=== PATIENT | male | born 1940 | race Caucasian/White ===

== ENCOUNTER 2019-11-22 08:47 | Outpatient (CLI) | payer BC ==
--- NOTE | 2019-11-22 09:58 | CT ---
Exam: Lumbar spine CT without contrast HISTORY: Chronic low back pain for many years. Patient is having balance issues. COMPARISON: None. FINDINGS: Somewhat limited evaluation due to motion degradation. Symmetric attenuation of the paraspinal muscles. Appropriate attenuation of the visualized solid orga ns. Atherosclerosis of a nonaneurysmal aorta. Lumbar spine vertebral body height is maintained. There is no fracture. Multilevel endplate sclerosis and osteophyte formation, on the basis of degenerative change. There is mild rightward curvature of the lumbar spine with the apex at the L3 level. Multilevel vacuum disc phenomenon throughout the d istal thoracic spine, lumbar spine and lumbosacral junction. Visualized sacrum and iliac wings are intact. Visualized presacral fat is preserved. Limited evaluation of the contents of the central spinal canal and neural foramina due to technique T11-T12 and T12-L1: Vacuum disc phenomenon with mild central canal stenosis and mild bilateral neural foraminal narrowing. L1-L2: Vacuum disc phenomenon. Severe loss of disc space height. Broad-based disc osteophyte by compl ex with mild to moderate central canal stenosis. Moderate bilateral neural foraminal narrowing. L2-L3: Vacuum disc phenomenon with severe loss of disc space height. Broad-based disc bulge, ligament um flavum thickening, and facet hypertrophy result in mild central canal stenosis. Right neural foramen is patent. Severe left neural foraminal narrowing. L3-L4: Vacuum disc phenomenon. Broad-based disc bulge, ligamentum flavum thickening, and facet hypert rophy result in mild to moderate central canal stenosis. Moderate right and moderate to severe left neural foraminal narrowing. L4-L5: Vacuum disc phenomenon. Severe loss of disc space height. Broad-based disc bulge, ligamentum f lavum thickening, and facet hypertrophy result in moderate central canal stenosis. Moderate bilateral neural foraminal narrowing. L5-S1: Vacuum disc phenomenon. Broad-based disc bulge with central disc herniation. Encroachment upon bilateral subarticular zones. Mass effect upon both traversing S1 nerve roots without complete obscuration. No significant stenosis of the thecal sac. Moderate bilateral neural foraminal narrowing . IMPRESSION: 1. Multilevel vacuum disc phenomenon. Multilevel central canal stenosis and neural foraminal narrowin g as described above. 2. Mild rightward curvature the lumbar spine. Transcribed Date/Time: 11/22/2019 10:05 AM
== END 2019-11-22 08:48 | disposition home or self-care (01) ==
LOC: SCSCT 08:47
PROVIDERS: ATTEND Neurological Surgery
DX: M54.5 Low back pain (principal); M48.061 Spinal stenosis, lumbar region without neurogenic claudication; M43.9 Deforming dorsopathy, unspecified; M48.07 Spinal stenosis, lumbosacral region; M51.86 Other intervertebral disc disorders, lumbar region
CPT/HCPCS: 72131

== ENCOUNTER 2024-07-11 08:08 | Day surgery (SDC) | payer MEDICARE ==
[2024-07-11] MEDS ORDERED: Sodium Bicarbonate 2.5 MEQ/5 ML SDV ONE (08:15)
[2024-07-11 12:03] VITALS: BP 143/76
[2024-07-11 12:25] LABS: CSF Source CSF
[2024-07-11 12:25] LABS: CSF Source CSF; Clarity Clear (Clear); Tube # 4
[2024-07-11 12:26] LABS: Clarity Clear (Clear); Tube # 1
[2024-07-11 12:36] LABS: CSF, Protein 60.3 mg/dL (15-40)
== END 2024-07-11 12:05 | disposition home or self-care (01) ==
LOC: RAD 08:08
PROVIDERS: ATTEND Neurological Surgery
PROC: 009U3ZX Drainage of Spinal Canal, Percutaneous Approach, Diagnostic (ICD-10-PCS; principal; 2024-07-11)
DX: G91.9 Hydrocephalus, unspecified (principal); I10 Essential (primary) hypertension; K21.9 Gastro-esophageal reflux disease without esophagitis; Z85.828 Personal history of other malignant neoplasm of skin; Z96.651 Presence of right artificial knee joint; Z98.41 Cataract extraction status, right eye; Z98.42 Cataract extraction status, left eye; Z79.899 Other long term (current) drug therapy
CPT/HCPCS: 62270; 82945; 84157; 89051